=== PATIENT | male | born 1970 | race Caucasian/White ===

== ENCOUNTER 2017-05-31 08:19 | Emergency (ER) | payer OTHER ==
--- NOTE | ~2017-05-31 | CT4 ---
[facility] A Service of [facility] & [facility] RADIOLOGY TEXT RESULTS PATIENT: CK STALLINGS LOCATION: [facility] : 68 UNIT #: [id number] AGE: [address]: Franky Richard DO SEX: M ORDER DR: [id number] [facility] [address] [place], [place] [address] [id number] MR#: [id number] Acc #: [id number] NAME: KC STALLINGS. : 1970 SEX: M STUDY DATE/TIME: 05/31/2017 UNIT: [facility] ROOM: STUDY DESCRIPTION: CT Abd and Pelv Wo Cont Attending Physician: Franky Richard D.O. Ordering Physician: Franky Richard D.O. Primary Care Physician: Arcenio Stevenson M.D. MEDICAL IMAGING REPORT This report is preliminary unless electronic signature is present EXAM CT abdomen and pelvis without contrast 05/31/2017 1026 hours HISTORY 46-year-old man complaining of left lower quadrant pain since this morning. COMPARISON 11/27/2015 TECHNIQUE Helical noncontrasted images were obtained from the lung bases through the pubic symphysis without oral or intravenous contrast. Sagittal and coronal reconstructions were performed. Total exam DLP 665 mGy-cm. This CT exam was performed with one or more of the following radiation dose reduction techniques: automatic exposure control, adjustment of mA and/or kV according to patient size, and iterative reconstruction. FINDINGS Images through the lung bases are clear. There are no nodules or effusions. There is a small hiatal hernia similar to prior study. Images through the abdomen are limited by large body habitus and low dose technique. There is no oral or intravenous contrast. 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 The liver, spleen, pancreas and adrenal glands. The right kidney is normal. The left kidney is enlarged, compared to 11/27/2015, with dilatation of the renal collecting system and upper ureter. I believe there is diffuse ureterectasis to the level of the pelvis where there is a small distal ureteral calculus seen just short of the left ureterovesical junction. This measures just a few millimeters in size, but is difficult to discretely identify. The bladder is contracted, but appears normal. [facility] A Service of [facility] / [facility] RADIOLOGY TEXT RESULTS PATIENT: CK STALLINGS LOCATION: [facility] : 68 UNIT #: [id number] AGE: [address]: Franky Richard DO SEX: M ORDER DR: The stomach and small bowel are remarkable only for prior gastric surgery. There is no small bowel distension or small bowel wall thickening. No evidence of appendicitis. The colon is decompressed. There is no colonic wall thickening. IMPRESSION 1. There is moderate left-sided pelvocaliectasis and distension of the left kidney with ureterectasis. I believe there is a 2-mm stone in the distal left ureter just short of the left ureterovesical junction. Exam is limited by large body habitus and low dose technique. 2. There is no right renal or ureteral stone. 3. No evidence of appendicitis. 4. No colonic distension or colonic wall thickening seen. Dictated by... Mariah Brown M.D. THIS IS AN ELECTRONICALLY VERIFIED REPORT Mariah Brown M.D. at 06/01/2017 9:29 AM Lianne TD: 05/31/2017 15:29 JOB #: [id number] MEDICAL IMAGING REPORT Page 1 of 1 COPY
[~2017-05-31 08:19] MED LIST: AMARYL PO; CELEXA PO; CLONIDINE; FERRO-TIME325 MG PO; HYDROCODON-ACE1 EAC5 PO; KLONOPIN1 MG PO; MEDROL4 MG/DOSE-; METFORMIN HCL1000 M1 PO; MYCOSTATIN POWD15 GM EXT; NORFLEX100 M1; NORVASC PO; PROTONIX PO; [UNRECOGNIZED DRUG - REMARK] PO
[2017-05-31 08:53] LABS: URINE SOURCE CLEAN CATCH
[2017-05-31 09:00] LABS: URINE APPEARANCE CLOUDY; URINE BILIRUBIN NEG (NEG); URINE BLOOD 3+ (NEG); URINE COLOR DK YELLOW; URINE GLUCOSE NEG (NEG); URINE KETONE NEG (NEG); URINE LEUKOCYTE ESTERASE NEG (NEG); URINE NITRATE NEG (NEG); URINE PROTEIN TRACE (NEG); URINE SPECIFIC GRAVITY 1.041 (1.003-1.035)
[2017-05-31 09:02] LABS: URINE BACTERIA AUWI NEG (NEGATIVE); URINE SQUAMOUS EPITHELIAL CELL FEW /[HPF]
[2017-05-31 09:31] LABS: CULTURE INDICATED? NO
[2017-05-31 09:36] LABS: URINE CRYSTALS CALCIUM OXALATE /[HPF]; URINE MUCUS PRESENT
[2017-05-31 09:42] LABS: INR 1.1; PARTIAL THROMBOPLASTIN TIME 24.3 SECONDS (23.5-31.3); PROTHROMBIN TIME (PATIENT) 11.4 SECONDS (10.0-11.7)
[2017-05-31 09:46] LABS: BASOPHIL% 0.4 % (0-2.5); EOSINOPHIL# 0.1 X10e3 (0-0.7); EOSINOPHIL% 0.8 % (0.0-7.0); HEMATOCRIT 40.3 % (38.0-50.0); HEMOGLOBIN 12.7 gm/dL (13.0-16.0); LYMPHOCYTE# 1.3 X10e3 (1.0-3.5); LYMPHOCYTE% 11.5 % (17.0-45.0); MEAN CELL VOLUME 76.5 FL (83-96); MEAN CORPUSCULAR HEMOGLOBIN 24.2 PG (28-34); MEAN CORPUSCULAR HGB CONC 31.6 g/dL (30-36); MEAN PLATELET VOLUME 7.3 FL (6.5-11.5); MONOCYTE# 0.7 X10e3 (0-1.0); MONOCYTE% 6.4 % (3.0-12.0); NEUTROPHIL# 8.8 X10e3 (1.5-7.1); NEUTROPHIL% 80.9 % (40-75); PLATELET COUNT 337 X10e3 (140-420); RED BLOOD COUNT 5.27 X10e (3.90-5.60); RED CELL DISTRIBUTION WIDTH 17.1 % (11.0-15.5); WHITE BLOOD COUNT 10.9 X10e3 (4.0-10.5)
[2017-05-31 09:55] LABS: ALBUMIN SERUM 3.6 g/dL (3.5-5.0); ALKALINE PHOSPHATASE 65 U/L (32-92); ALT (SGPT) 20 U/L (10-40); AST (SGOT) 21 U/L (10-42); BILIRUBIN, DIRECT <0.1 mg/dL (0.0-0.2); BILIRUBIN,INDIRECT 0.5 mg/dL (0.0-0.9); BILIRUBIN,TOTAL 0.6 mg/dL (0.2-2.0); BLOOD UREA NITROGEN 13 mg/dL (9-23); BUN/CREATININE RATIO 14.44; CALCIUM SERUM 8.4 mg/dL (8.4-10.2); CARBON DIOXIDE 26 mmol/L (22-31); CHLORIDE 109 mmol/L (100-111); CREATININE SERUM 0.9 mg/dL (0.6-1.4); GLOM FILT RATE Estimated 101.4 mL/min (>60); GLUCOSE FASTING 189 mg/dL (70-110); LIPASE 29 U/L (22-51); POTASSIUM 3.3 mmol/L (3.5-5.1); PROTEIN TOTAL SERUM 7.1 g/dL (6.0-8.3); SODIUM 141 mmol/L (135-145)
[2017-05-31 10:07] LABS: DIFF IND NO
== END 2017-05-31 12:06 | disposition home or self-care (01) ==
LOC: CED 08:19
PROVIDERS: Emergency Medicine
DX: N20.1 Calculus of ureter (principal); E11.9 Type 2 diabetes mellitus without complications; I10 Essential (primary) hypertension; E66.9 Obesity, unspecified; Z90.49 Acquired absence of other specified parts of digestive tract; Z79.899 Other long term (current) drug therapy
CPT/HCPCS: 36415; 74176; 80048; 80076; 81003; 83690; 85025; 85610; 85730; 86850; 86900; 86901; 96361; 96374; 96375; 99284; J1170; J1885; J2270; J2405